=== PATIENT | male | born 1955 | race Caucasian/White ===

== ENCOUNTER 2017-06-15 11:12 | Day surgery (SDC) | payer OTHER ==
[~2017-06-15] VITALS: Ht 180.3 cm; Wt 80.0 kg
[2017-06-15] VITALS (14 sets, daily range): BP systolic 136–169; BP diastolic 64–82; PULSE 59–72; RESP 14–16; O2SAT 94–100
[~2017-06-15 11:12] MED LIST: ASPI-351 PO; CLOP75TA14 PO; IBUP-1149 PO; ISOS30TA PO; NITR0.4T SL; PRAS10TA5 PO; RANI-351 PO; SIMV5TAB PO; TOP100 PO; ZES5 PO
--- NOTE | 2017-06-15 11:15 | ED.REPORT ---
HPI-Chest Pain 40 and Over Date of Service Jun 15, 2017 ED Provider: Dr. Saleem Pt is a 62 y/o male w/ a hx of CAD s/p stenting, HTN, HLD, presenting to the ED from a cardiac stress test due to chest pain and ST changes. The patient has been experiencing intermittent left upper chest discomfort with radiation down the left arm. This morning he woke up and his symptoms occurred while at rest. He was scheduled for a stress echocardiogram this morning and during the stress test his chest discomfort worsened and he developed dynamic ST depressions with mild exertion with his HR in the 80s. The stress test was terminated and he was transferred here accompanied by Dr. Elliott to the ED with plan to make him NPO, heparinize, and laboratory development technician later today. He is still experiencing mild chest discomfort at time of interview. During exertion, he experiences dyspnea. He hasn't smoked since 2008. Dr. Reyes placed an RCA stent in 2012 and an LAD stent was [place] [address] King. Nursing Notes Stated Complaint: FAILED STRESS TEST Nursing Notes Reviewed: Yes Allergies: Coded Allergies: codeine (Verified Allergy, Intermediate, GI, 01/10/13) hydrocodone (Verified Allergy, Unknown, Dizziness, 06/15/17) collapsed in shower Scheduled Amlodipine (Amlodipine) 2.5 Mg Tablet 2.5 MG PO DAILY Aspirin (Aspirin) 81 Mg Tablet 81 MG PO DAILY Escitalopram Oxalate (Escitalopram Oxalate) 10 Mg Tablet 10 MG PO DAILY Lisinopril (Lisinopril) 10 Mg Tablet 10 MG PO DAILY Metoprolol Succinate ER (Metoprolol Succinate ER) 50 Mg Tab.er.24h 50 MG PO DAILY Prasugrel HCl (Effient) 10 Mg Tablet 10 MG PO DAILY Simvastatin (Simvastatin) 20 Mg Tablet 20 MG PO HS Scheduled PRN Ibuprofen (Ibuprofen) 400 Mg Tablet 400 MG PO QID PRN PRN For Pain Miscellaneous Medications Nitroglycerin (Nitroglycerin) 0.3 Mg Tab.subl 0.3 MG SL Ranitidine HCl (Heartburn Relief) 75 Mg Tablet 75 MG PO Rosuvastatin Calcium (Rosuvastatin Calcium) 20 Mg Tablet 20 MG PO General Time Seen by MD: 11:14 Chief Complaint Chest pressure Hx Obtained From: Patient Arrived By: Walk-in (from laboratory development technician) Sudden in Onset?: Yes Onset Occurred: Just prior to arrival Symptom Duration: Since onset Location: : Chest left Quality: Aching, Pressure Radiation: : Arm left Severity: Current: Mild Severity: Maximum: Moderate Recent Healthcare: Previous diagnosis Similar Sx Previous: Yes Past Medical History Past Medical History CAD s/p stenting to LAD and RCA Hypertension Hyperlipidemia Denies diabetes Past Surgical History Dr. Reyes placed an RCA stent in 2012 and an LAD stent was [place] [address] King. Smoking History Former Smoker Social History Alcohol Use: Denies alcohol use Drug Use: Denies drug use Ambulatory Status Independent Review of Systems Constitutional: Denies: Chills, Fever Respiratory: Denies: Non-productive cough Cardiovascular: Reports: Chest pain, Dyspnea on exertion GI: Denies: Abdominal pain, Nausea, Vomiting Complete sys rev & neg: except as marked. Physical Exam Initial Vital Signs Vital Signs (First) Date Time Temp Pulse Resp B/P Pulse Ox O2 Delivery O2 Flow Rate FiO2 06/15/17 11:17 36.3 59 14 169/69 100 Room Air Initial VS: Reviewed Head / Eyes: Atraumatic, Normocephalic ENT: Mucous membranes moist, Conjunctiva normal, No scleral icterus Neck: Supple, Full range of motion Extremities: Vascular intact, Neuro intact, No swelling Skin: Warm, Dry, No cyanosis Neurologic: Alert, Oriented, Nonfocal Psychiatric: Mood/affect normal, Behavior normal, Normal thought content General/Constitutional: Awake, Alert, No acute distress, Well appearing, Cooperative, Not toxic appearing Respiratory / Chest: Breath sounds NL, Breath sounds = bilat, No respiratory distress, No rales, No rhonchi, No wheezing, No stridor, No chest tenderness Cardiovascular: Heart rate NL, Regular rhythm, Heart sounds NL, No murmurs Abdomen: Soft, Non-tender, No guarding, No rebound, No distention Interpretation & Diagnostics Lab Results Interpretation Result Diagram: 06/15/17 1205 06/15/17 1205 Test 06/15/17 12:05 White Blood Count 8.0th/mm3 (3.8-10.1) Red Blood Count 3.93mil/mm3 (4.40-5.80) Hemoglobin 12.1g/dL (13.8-17.2) Hematocrit 36.2% (41.0-50.0) Mean Corpuscular Volume 92.1fL (81-100) Mean Corpuscular Hemoglobin 30.8pg (27.0-35.0) Mean Corpuscular Hemoglobin Concent 33.4% (32.0-37.0) Red Cell Distribution Width 12.7% (12.3-15.4) Platelet Count 255bil/L (150-400) Neutrophils (%) (Auto) 59.2% (40-74) Lymphocytes (%) (Auto) 30.2% (14-46) Monocytes (%) (Auto) 8.6% (4-12) Eosinophils (%) (Auto) 1.3% (0-5) Basophils (%) (Auto) 0.6% (0-3) Prothrombin Time 10.7sec (8.1-12.5) Prothromb Time International Ratio 1.00ratio Activated Partial Thromboplast Time 28.2sec (22.8-33.0) Sodium Level 140mEq/L (134-144) Potassium Level 4.3mEq/L (3.5-5.2) Chloride Level 102mEq/L (97-108) Carbon Dioxide Level 24mmol/L (18-29) Blood Urea Nitrogen 20mg/dL (8-27) Creatinine 1.08mg/dL (0.76-1.27) Estimat Glomerular Filtration Rate 74mL/min (>59) Glucose Level 90mg/dL (60-99) Calcium Level 9.5mg/dL (8.5-10.1) Magnesium Level 2.1mg/dL (1.6-2.6) Total Bilirubin 0.7mg/dL (0.0-1.2) Aspartate Amino Transf (AST/SGOT) 24U/L (0-50) Alanine Aminotransferase (ALT/SGPT) 24U/L (0-44) Alkaline Phosphatase 87U/L (25-160) Troponin T < 0.010ug/L (0.0-0.011) Total Protein 7.4g/dL (6.4-8.4) Albumin 4.5g/dL (3.4-5.0) Thyroid Stimulating Hormone (TSH) 1.680uIU/mL (0.450-4.500) Hold Pro Top Tube Received (Received) ECG Interpretation Time: 11:45 Interpreted by: ED physician Normal ECG Interpretation: Normal ECG w/ rate of... (55), Normal rate, Normal sinus rhythm, No acute ischemic changes, Normal QRS, Normal axis, Normal intervals, Adequate tracing X-Ray Chest Interpretation Chest Xray Interpretation: IMPRESSION: Negative chest. No acute cardiopulmonary process is evident. Dictated by: Chris Martin M.D. on 06/15/2017 at 10:37 Approved by: Chris Martin M.D. on 06/15/2017 at 10:43 View: Portable, 1 view Interpretation / Wet Read by: Interpret - Radiologist Re-Eval/Medical Decision Med Decision/Clinical Course 62-year-old male history of cardiac disease and stents in the LAD in 2008 and right side of the heart in 2012 sent in for admission by oil field equipment mechanic supervisor after ST depressions during stress test today. Cardiology recommended heparinization and will take to laboratory development technician later today. Admitted to hospital. Source of Hx: Old records, Private physician Time of Eval: 11:26 Re-Evaluation/Progress Note: Pt rechecked. Informed pt of need for admission. Pt understands and agrees with plan for admission. All questions addressed. CODE STATUS: FULL CODE Consultation #1: Referral / Consult Name: Christine Elliott MD Call Returned at: 11:14 Delphi Developer: Will see patient, Agrees with eval, Agrees with plan Note: Discussed case before patient's arrival. Consultation #2: Referral / Consult Name: Lul De DO Consulted With: Hospitalist Call Returned at: 12:44 Delphi Developer: Accepts admit Note: Discussed case with Lexi. Counseled Regarding: Diagnosis, Lab results, Need for admission Discharge & Departure Primary Impression: Unstable angina Disposition: ADMITTED TO HOSPITAL Discharge Condition All VS Reviewed: Yes Condition: Stable Referrals: Neris Raymond (PCP) Crit Care Except Billable Proc Time Spent: 30-74 minutes Services Performed: Patient management by me, Time spent at bedside, Reviewing test results, Reviewing imaging, Discussing patient care, Documentation in record Critical Care Notes: 30 minutes Scribe Attestation Portions of this note were transcribed by Meet Arreaga. I, Dr. Saleem personally performed the history, physical exam and medical decision-making; I reviewed and confirmed the accuracy of the information in the transcribed note. copies to: Neris Raymond Ben M MD Jun 15, 2017 11:15 MEET ARREAGA Jun 15, 2017 11:22
[2017-06-15] MEDS ORDERED: 0.9% Sodium Chloride 1,000 ML IV ONE (11:17)
--- NOTE | 2017-06-15 11:45 | DRSVH ---
PROCEDURE: X-RAY CHEST ONE VIEW, PORTABLE ([id number]) INDICATIONS: chest pain TECHNIQUE: One view of the chest was acquired. COMPARISON: None. FINDINGS: Surgical changes and devices: None. Lungs and pleura: No pleural effusions or pneumothorax. Lungs are clear. Mediastinum: Mediastinal contours appear normal. Heart size is normal. Bones and chest wall: No suspicious bony lesions. Overlying soft tissues appear unremarkable. IMPRESSION: Negative chest. No acute cardiopulmonary process is evident. Dictated by: Chris Martin M.D. on 06/15/2017 at 10:37 Approved by: Chris Martin M.D. on 06/15/2017 at 10:43
[2017-06-15] MEDS ORDERED: Heparin 25K Unit/500mL 0.45 NS 25,000 UNIT in IV Premix 1 EACH IV ONE (12:20)
[2017-06-15] MEDS ORDERED: Heparin 5,000 Unit/mL Inj IVPUSH ONE (12:20)
[2017-06-15 12:29] LABS: BASOPHILS % (AUTO) 0.6 % (0-3); EOSINOPHILS % (AUTO) 1.3 % (0-5); MONOCYTES % (AUTO) 8.6 % (4-12); Mean Corpuscular Hemoglobin 30.8 pg (27.0-35.0); Mean Corpuscular Volume 92.1 fL (81-100); NEUTROPHILS % (AUTO) 59.2 % (40-74); Platelet Count 255 bil/L (150-400)
[2017-06-15] MEDS ORDERED: Ondansetron 2 mg/mL 2 mL Inj IVPUSH PRN (12:45)
[2017-06-15] MEDS ORDERED: Alum-Mag Hydrox-Simeth 30 mL Suspension PO PRN (12:45)
[2017-06-15 13:04] LABS: Magnesium 2.1 mg/dL (1.6-2.6)
[2017-06-15 13:09] LABS: TROPONIN T < 0.010 ug/L (0.0-0.011)
[2017-06-15] MEDS ORDERED: Heparin 10,000 Unit/1,000 mL NS Premix IV ONE (13:21)
[2017-06-15] MEDS ORDERED: Heparin 1,000 Units/500 mL NS Premix IV ONE (13:21)
[2017-06-15] MEDS ORDERED: Heparin 1,000 Unit/mL 10 mL Inj ONE (13:24)
[2017-06-15] MEDS ORDERED: fentaNYL-PF 50 mCg/mL 2 mL Inj ONE (13:43)
[2017-06-15] MEDS ORDERED: LISI10TA PO (13:52)
[2017-06-15] MEDS ORDERED: SIMV20TA4 PO (13:52)
[2017-06-15] MEDS ORDERED: RANI75TA72 PO (13:52)
[2017-06-15] MEDS ORDERED: IBUP400T22 PO (13:52)
[2017-06-15] MEDS ORDERED: ASPI-973 PO (13:52)
[2017-06-15] MEDS ORDERED: METO-272 PO (13:52)
[2017-06-15] MEDS ORDERED: NITR0.3T6 SL (13:52)
[2017-06-15] MEDS ORDERED: PRAS10TA5 PO (13:55)
[2017-06-15] MEDS ORDERED: ESCI10TA52 PO (14:54)
[2017-06-15] MEDS ORDERED: ROSU20TA27 PO (14:54)
[2017-06-15] MEDS ORDERED: AMLO2.5T PO (14:54)
[2017-06-15] MEDS ORDERED: Atropine 1 mg/10 mL (Code) Syringe IVPUSH PRN (15:05)
[2017-06-15] MEDS ORDERED: Senna-Docusate 8.6-50 mg Tablet PO PRN (15:05)
[2017-06-15] MEDS ORDERED: Polyethylene Glycol (PEG) 17 Gm Powder PO PRN (15:05)
--- NOTE | 2017-06-15 16:06 | CS94 ---
[address] [address] DIAGNOSTIC CARDIAC CATHETERIZATION PATIENT: ALYSON DAVIS : 1955 MR#: [id number] ADMIT: 06/15/2017 JOB ID: [id number] SERVICE DATE: 06/15/2017 CHIEF COMPLAINT: Chest pain. HISTORY OF PRESENT ILLNESS: The patient is a delightful 62-year-old with chest pain both at rest and during physical activity. He presents to the emergency department after abnormal stress echo this morning and Cardiology is consulted to assist with further management. PROCEDURES PERFORMED: 1. Left heart catheterization--selective coronary angiogram. 2. Right common femoral artery vascular access under ultrasound guidance. 3. Hemostasis obtained via Perclose closure device. 4. Hemodynamic recording left ventricular end-diastolic pressure. Ventriculogram deferred by intention to conserve contrast. FINDINGS: Following informed consent, the patient was prepped and draped in the usual sterile fashion. A 6-Guatemalan sheath was placed in the right common femoral artery. Sheath placement was confirmed via femoral angiogram. JL-4 and JR-4 catheters were used to engage left main and right coronary artery ostia respectively. Hand injection craniocaudal angulation was used to obtain selective coronary angiograms. All exchanges were performed over a wire. Pigtail was advanced in the left ventricle under continuous hemodynamic monitoring. Left ventricular end-diastolic pressure was recorded. The pigtail was withdrawn from the left ventricle into the aorta. No aortic stenosis was visualized. Perclose closure device was used to obtain hemostasis. COMPLICATIONS: None. CONTRAST USED: 70 cc. FLUOROSCOPY TIME: 3.3 minutes. FINDINGS: Right common femoral artery gives rise to SFA and profunda. The sheath entered the right common femoral artery at the lower third of the femoral head. There is no evidence of contrast extravasation or dissection. Left ventricular end-diastolic pressure recording: Left ventricular end-diastolic pressure is 28 mmHg. Blood pressure 155/15. There is no evidence of aortic stenosis based on pullback. Coronary angiogram: Left main is a normal caliber vessel, gives rise to LAD and the circumflex. Excellent blow back. No dampening on engagement. No obstructive lesion seen. LAD is a wrap-around vessel. There are two previously deployed overlapping stents in the midportion of the LAD. There is moderate 50% stenosis proximal to the stent. It is completely unchanged compared to prior angiogram performed in 2013. Circumflex is a nondominant vessel. It gives rise to a small OM-1, large OM-2, and large OM-3 and no obstructive lesions are seen. Right coronary artery is a dominant vessel. It gives rise to PDA and posterior lateral branch. There is a previously deployed Xience drug-eluting stent in the proximal portion of the vessel. There is moderate lesion just proximal to the stent and moderate lesion at the distal shoulder of the stent. It is about 40%-50%. IMPRESSION: 1. Known hemodynamically significant mid LAD disease in the proximal shoulder of previously deployed stent. It is 40%-50% and unchanged from prior study performed in 2013. 2. Newly described 40%-50% stenosis in the proximal shoulder of the right coronary artery stent and 40%-50% stenosis in the distal shoulder of previously deployed right coronary artery stent. Does not appear to be hemodynamically significant. Was reviewed with Dr. Sandhu. PLAN: We will continue with therapeutic lifestyle change program via diet and exercise. Increase amlodipine from 2.5 mg daily to 5 mg daily and low threshold to escalate beta kin should exertional chest discomfort continue. Thank you very much for the opportunity to evaluate this patient.
[2017-06-15] MEDS: Heparin 5,000 Unit/mL Inj SUBQ SCH ×2 (16:30→23:56)
[2017-06-15] MEDS: Sodium Chloride LOK Flush 10 mL Syringe IVFLUSH SCH ×2 (16:30→23:56)
--- NOTE | 2017-06-15 17:06 | NUR ---
arrival to room 3031 patient transferred from [facility] to room 3031 at 1700hrs today. right groin checked, no oozing, no hematoma. post angiogram care instructions reviewed with patient and family. can be off bedrest at 1700hrs. NS at 100ml/hr x4hrs post procedure. 4hrs completed at 1900hrs. patient denies CP/SOB dizziness, N/V. distal pedal pulse present. continue to monitor.
--- NOTE | 2017-06-15 19:15 | PCM.HPMED ---
Subjective Date of Service Jun 15, 2017 Primary Provider: Admitting Physician: Primary Care Physician: Neris Raymond Attending Physician: Lul De DO Admit Status: From the Emergency Department Chief Complaint: chest pain with failed stress test History of Present Illness: Craig Mcfarland is a 62-year-old male with past medical history coronary artery disease with percutaneous intervention to his LADx2 and RCA who presents due to a failed stress test which was recommended by his PCC Abida Raymond for chest pain that has become more frequent since March. At the patient's stress test he reportedly had transient ST depression concerning for possible ischemia with associated chest discomfort. The patient had his stress test terminated and he was transferred to the [facility] ED accompanied by director trust Dr. Elliott for the patient was made NPO and placed on a heparin drip and eventually transferred to the cardiac manufacturing lab technician. The patient states that the pain occurs most commonly in the mornings and is a 5/10 sharp pain in his chest that radiates down his left back and down his left arm. The patient also has associated shortness of breath with this chest pain which lasts nearly 15 minutes typically. Rest seems to help alleviate the pain. These episodes of chest pain are similar to chest pain occurring in 2008 which resulted in PCI 2x LAD stents. The patient has a history of tobacco use but quit in 2008. Dr. Reyes placed an RCA stent in 2012 and an LAD stent was [place] [address] King. The patient's regular director trust is Dr. Bray. Review of Systems: A comprehensive review of systems was obtained and all are negative except for what is included in the history of present illness Allergies Coded Allergies: codeine (Verified Allergy, Intermediate, GI, 01/10/13) hydrocodone (Verified Allergy, Unknown, Dizziness, 06/15/17) collapsed in shower Home Medications Amlodipine 2.5 MG PO DAILY Aspirin 81 MG PO DAILY Escitalopram Oxalate 10 MG PO DAILY Lisinopril 10 MG PO DAILY Metoprolol Succinate ER 50 MG PO DAILY Prasugrel HCl 10 MG PO DAILY Simvastatin 20 MG PO HS Ibuprofen 400 Mg Tablet PRN For Pain Nitroglycerin 0.3 MG SL Ranitidine HCl 75 MG PO Rosuvastatin Calcium Tablet 20 MG PO PMH Coronary artery disease with history of percutaneous intervention Hypertension Hyperlipidemia History of tobacco use Surgical History LAD stent 2x in 12/2008 RCA stent 1x 12/2012 Family History Father: Passed around age 70 due to unknown heart condition. Emphysema Mother: Passed at age 59 due to Cancer of Brain Brother: Fatal [place] at age 64 Brother: Alive with unknown Heart Stents and Leg Stents Social History Hx Alcohol Use: No Hx Substance Use: No Hx Tobacco Use: No Smoking Status: Former Smoker Years of Smokin Living Arrangement: with Family Exam Vital Signs Vital Sign - Last Date Time Temp Pulse Resp B/P Pulse Ox O2 Delivery O2 Flow Rate FiO2 06/15/17 17:00 68 06/15/17 16:57 37.1 16 154/82 95 Room Air Exam General: Middle-age man appearing in no acute distress alert and cooperative Eyes: Pupils equal round and reactive to light, extraocular motion intact, anicteric sclera, noninjected conjunctiva HENT: Normocephalic atraumatic, moist mucous membranes without central cyanosis , oropharynx clear without purulent exudate or cobblestoning mucosa Neck: Supple, trachea midline, without thyromegaly or JVD Cardiovascular: Regular rate and regular rhythm, S1-S2 present, no S3-S4, without murmurs rubs or gallops noted Lungs: Clear to auscultation bilaterally without wheezing rales or rhonchi Abdomen: Soft, nontender, nondistended, tympanic to percussion, normal active bowel sounds, without organomegaly Extremities: No cyanosis clubbing or edema noted, pulses intact bilaterally at dorsalis pedis and radial : No Jonas catheter in place Skin: Warm and dry Neuro: Nonfocal neurologic exam, moves all extremities spontaneously Psych: Normal mood and affect Lab and Diagnostics Result Diagram: 06/15/17 1205 06/15/17 1205 X-Rays, CTs and MRIs X-RAY CHEST ONE VIEW, PORTABLE IMPRESSION: Negative chest. No acute cardiopulmonary process is evident. Approved by: Chris Martin M.D. on 06/15/2017 at 10:43 Cardiac Echo Impressions Echocardiogram Report Interpretation Summary The estimated MILLER is +40%. This was a normal stress echocardiogram. Exercise stress echocardiogram is negative for inducible ischemia. The patient demonstrated severely reduced exercise capacity without angina or significant ECG evidence of ischemia. The sensitivitiy and specificity of this test was reduced because of an inadequate heart rate response. Reading Physician:02:31 PM Assessment & Plan Craig Mcfarland is a 62-year-old male with past medical history coronary artery disease with percutaneous intervention to his LADx2 and RCA who presents with chest pain and following a failed stress test with transient ST depression concerning for ischemia. # acute unstable angina - Patient notes recurrent chest pain which appears to be prominent in the morning with some association with exertion - Patient had a failed stress test which resulted in transient ST depression with associated chest pain - Patient seen by cardiology and taken to the cardiac manufacturing lab technician which showed nonobstructive coronary artery disease - Initial troponin drawn in the ED negative this will not be repeated after cardiac catheterization is likely manipulation of the heart will cause increased troponins - will not repeat echo post cath given stress echo testing which is copied above - Continue baby aspirin daily - Continue home Prasugrel 10 MG daily - Continue home statin therapy with rosuvastatin 20mg - Lipid panel ordered - Morphine IV, sublingual nitroglycerin, and when necessary EKGs for recurrent chest pain # chronic hypertension - Increase Amlodipine dosing from 2.5 mg to 5 mg every night - Lisinopril 10 mg daily every morning - Continue home metoprolol succinate 50 mg # anxiety - continue home escitalopram GI prophylaxis: Famotidine DVT prophylaxis: Heparin drip CODE STATUS full Patient is admitted for observation status given presenting symptoms, likely diagnosis, possible complications, and required treatments expected length of stay less than to midnights. Pain Evaluation: Adequate Pain Control GI Prophylaxis: H2 kin VTE Prophylaxis Indicated: Meets Criteria for Anticoag Therapy VTE Prophylaxis: Sub-Q Heparin (Unfractionated) Resuscitation Status: CPR: Attempt Resuscitation Time spent 45 minutes Attending Statement I have seen and evaluated patient at bedside in addition to directly supervising care provided by resident physician. I agree with above documentation. Pt medically stable, observe overnight, likely discharge in AM. Mk Day DO Jun 15, 2017 19:15 Lul De DO Jun 15, 2017 22:17
[2017-06-16 00:01] VITALS: BP 110/56; PULSE 65; RESP 16; O2SAT 98
--- NOTE | 2017-06-16 02:35 | NUR ---
NOC shift Patient's vitals have been stable. Reports 1/10 left-sided chest pain that feels muscular, declined medications. Instructed patient to alert staff if pain changes, increases. Telemetry has been sinus reid, sinus rhythm 50-60's. Right groin site remained CDI with no bleeding or swelling noted. Patient reports pain in this area at 3/10, mostly after ambulation. Declined offered interventions. Patient remained alert and oriented, easily wakes to voice, able to make needs known. Intentional rounding in place.
[2017-06-16 05:04] VITALS: BP 134/74; PULSE 57; RESP 16; O2SAT 97
[2017-06-16 06:41] VITALS: PULSE 68
[2017-06-16 06:55] LABS: Mean Corpuscular Volume 90.9 fL (81-100)
[2017-06-16] MEDS: Sodium Chloride LOK Flush 10 mL Syringe IVFLUSH SCH (07:53)
[2017-06-16] MEDS: Heparin 5,000 Unit/mL Inj SUBQ SCH (07:53)
[2017-06-16] MEDS ORDERED: MeTOProlol XL 50 mg ER24 Tablet PO SCH (08:30)
[2017-06-16 09:08] VITALS: PULSE 72
[2017-06-16 09:13] VITALS: BP 118/65; PULSE 65; RESP 16; O2SAT 96
[2017-06-16] MEDS ORDERED: AMLO5TAB2 PO (09:53)
--- NOTE | 2017-06-16 10:51 | PCM.DIMED ---
Discharge Instructions Date of Service Jun 16, 2017 Dates of Hospitalization Jun 15, 2017 Discharge Diagnosis Discharge Diagnosis acute dx acute unstable angina with non-obstructive CAD chronic dx hypertension anxiety Medication Instructions Additional med instructions Please note that your amlodipine was increased from 2.5mg to 5mg daily for better blood pressure control Diet Discharge Diet: Low fat, Low Sodium, Heart Healthy Activity Discharge Activity: No restrictions Call your provider Call your provider for: Shortness of breath, Chest pain Patient Instructions Patient Instructions You were hospitalized with chest pain. You underwent stress test and cardiac catheterization, which didn't show any active evidence of heart attack. Please follow up with as scheduled. Please follow up with your primary doctor in 1-2weeks for follow up Follow-up Provider: Neris Raymond Follow-up with PCP in: 1 week Natalia Heath MD Jun 16, 2017 10:51
--- NOTE | 2017-06-16 12:24 | NUR ---
DISCHARGE Patient discharged home at 1200, off floor in wheelchair accompanied by RN and family. Vitals stable, denies paid and in no apparent distress. Two IVs discontinued intact, all belongings returned. All instructions for diet, activity, medications, follow-up and new prescriptions reviewed with patient who reports understanding. Clarified with Dr Heath that patient was not to take prasugrel 10mg PO at discharge. MD states it is not on home med rec and patient does not need a prescription. Patient given booklet about vascular access closure post procedure. Patient reports understanding all instructions.
--- NOTE | 2017-06-16 14:41 | PCM.DC.MED ---
Discharge Summary Date of Service Jun 16, 2017 Dates of Hospitalization Date of Hospital Admission Date of Discharge: Jun 16, 2017 Providers: Admitting Physician: Primary Care Physician: Neris Raymond Attending Physician: Lul De DO Diagnosis at Time of Discharge Diagnosis at Time of Discharge acute dx acute unstable angina with non-obstructive CAD chronic dx hypertension anxiety Consultations Cardiology Procedures XRay, CTs & MRIs X-RAY CHEST ONE VIEW, PORTABLE IMPRESSION: Negative chest. No acute cardiopulmonary process is evident. Approved by: Chris Martin M.D. on 06/15/2017 at 10:43 Cardiac Echo Impression Echocardiogram Report Interpretation Summary The estimated MILLER is +40%. This was a normal stress echocardiogram. Exercise stress echocardiogram is negative for inducible ischemia. The patient demonstrated severely reduced exercise capacity without angina or significant ECG evidence of ischemia. The sensitivitiy and specificity of this test was reduced because of an inadequate heart rate response. Reading Physician:02:31 PM Brief History HPI obtained by on 06/15 Craig Mcfarland is a 62-year-old male with past medical history coronary artery disease with percutaneous intervention to his LADx2 and RCA who presents due to a failed stress test which was recommended by his PCC Abida Raymond for chest pain that has become more frequent since March. At the patient's stress test he reportedly had transient ST depression concerning for possible ischemia with associated chest discomfort. The patient had his stress test terminated and he was transferred to the [facility] ED accompanied by worship director Dr. Elliott for the patient was made NPO and placed on a heparin drip and eventually transferred to the cardiac geoscience laboratory technician. The patient states that the pain occurs most commonly in the mornings and is a 5/10 sharp pain in his chest that radiates down his left back and down his left arm. The patient also has associated shortness of breath with this chest pain which lasts nearly 15 minutes typically. Rest seems to help alleviate the pain. These episodes of chest pain are similar to chest pain occurring in 2008 which resulted in PCI 2x LAD stents. The patient has a history of tobacco use but quit in 2008. Dr. Reyes placed an RCA stent in 2012 and an LAD stent was [place] [address] King. The patient's regular worship director is Dr. Bray. Hospital Course Craig Mcfarland is a 62-year-old male with past medical history coronary artery disease with percutaneous intervention to his LADx2 and RCA who presents with chest pain and following a failed stress test with transient ST depression concerning for ischemia Brief hospital course Patient was admitted , underwent cardiac cath, which showed non-obstructive dz, 40-50% on mil LAD, which was unchanged from prior cath 2012, but new lesions, 40 %-50% stenosis in the proximal shoulder of the right coronary artery stent and 40%-50% stenosis in the distal shoulder of previously deployed right coronary artery stent. Does not appear to be hemodynamically significant. No intervention required. Patient was treated with home aspirin, BB, amlodipine was increased to 2.5mg to 5mg, observed after cath , remained asymptomatic, deemed safe for d/c # acute unstable angina - Patient notes recurrent chest pain which appears to be prominent in the morning with some association with exertion - Patient had a failed stress test which resulted in transient ST depression with associated chest pain - Patient seen by cardiology and taken to the cardiac geoscience laboratory technician which showed nonobstructive coronary artery disease - Initial troponin drawn in the ED negative this will not be repeated after cardiac catheterization is likely manipulation of the heart will cause increased troponins - will not repeat echo post cath given stress echo testing which is copied above - Continue baby aspirin daily - Continue home Prasugrel 10 MG daily - Continue home statin therapy with rosuvastatin 20mg - Lipid panel ordered - Morphine IV, sublingual nitroglycerin, and when necessary EKGs for recurrent chest pain # chronic hypertension - Increase Amlodipine dosing from 2.5 mg to 5 mg every night - Lisinopril 10 mg daily every morning - Continue home metoprolol succinate 50 mg # anxiety - continue home escitalopram GI prophylaxis: Famotidine DVT prophylaxis: Heparin drip CODE STATUS full Patient is admitted for observation status given presenting symptoms, likely diagnosis, possible complications, and required treatments expected length of stay less than to midnights. Exam Vital Signs (Last) Date Time Temp Pulse Resp B/P Pulse Ox O2 Delivery O2 Flow Rate FiO2 06/16/17 09:13 36.9 65 16 118/65 96 Room Air Exam pt was examined on the day of d/c Test 06/15/17 12:05 06/15/17 18:30 06/16/17 06:35 Neutrophils (%) (Auto) 59.2% (40-74) Lymphocytes (%) (Auto) 30.2% (14-46) Monocytes (%) (Auto) 8.6% (4-12) Eosinophils (%) (Auto) 1.3% (0-5) Basophils (%) (Auto) 0.6% (0-3) Prothrombin Time 10.7sec (8.1-12.5) Prothromb Time International Ratio 1.00ratio Hemoglobin A1c 5.6% (4.8-5.6) Magnesium Level 2.1mg/dL (1.6-2.6) Thyroid Stimulating Hormone (TSH) 1.680uIU/mL (0.450-4.500) Hold Pro Top Tube Received (Received) Activated Partial Thromboplast Time 27.3sec (22.8-33.0) White Blood Count 6.6th/mm3 (3.8-10.1) Red Blood Count 3.94mil/mm3 (4.40-5.80) Hemoglobin 12.2g/dL (13.8-17.2) Hematocrit 35.8% (41.0-50.0) Mean Corpuscular Volume 90.9fL (81-100) Mean Corpuscular Hemoglobin 31.0pg (27.0-35.0) Mean Corpuscular Hemoglobin Concent 34.1% (32.0-37.0) Red Cell Distribution Width 12.6% (12.3-15.4) Platelet Count 241bil/L (150-400) Sodium Level 141mEq/L (134-144) Potassium Level 4.3mEq/L (3.5-5.2) Chloride Level 103mEq/L (97-108) Carbon Dioxide Level 23mmol/L (18-29) Blood Urea Nitrogen 14mg/dL (8-27) Creatinine 0.99mg/dL (0.76-1.27) Estimat Glomerular Filtration Rate 82mL/min (>59) Glucose Level 117mg/dL (60-99) Calcium Level 9.6mg/dL (8.5-10.1) Total Bilirubin 0.9mg/dL (0.0-1.2) Aspartate Amino Transf (AST/SGOT) 19U/L (0-50) Alanine Aminotransferase (ALT/SGPT) 19U/L (0-44) Alkaline Phosphatase 87U/L (25-160) Troponin T 0.010ug/L (0.0-0.011) Total Protein 6.9g/dL (6.4-8.4) Albumin 4.3g/dL (3.4-5.0) Triglycerides Level 111mg/dL (0-149) Cholesterol Level 104mg/dL (100-199) LDL Cholesterol, Calculated 34.800mg/dL (0-99) VLDL Cholesterol 22.200mg/dL HDL Cholesterol 47mg/dL (>39) Cholesterol/HDL Ratio 2.21 (0.0-4.4) Discharge Medications Discharge Medications Amlodipine (Amlodipine) 5 Mg Tablet 5 MG PO HS Prescribed by: NATALIA MIMS MD Aspirin (Aspirin) 81 Mg Tablet 81 MG PO DAILY (Reported) Escitalopram Oxalate (Escitalopram Oxalate) 10 Mg Tablet 10 MG PO DAILY ( Reported) Lisinopril (Lisinopril) 10 Mg Tablet 10 MG PO DAILY (Reported) Metoprolol Succinate ER (Metoprolol Succinate ER) 50 Mg Tab.er.24h 50 MG PO DAILY (Reported) As needed Ibuprofen (Ibuprofen) 400 Mg Tablet 400 MG PO QID PRN PRN For Pain (Reported) Miscellaneous Medications Nitroglycerin (Nitroglycerin) 0.3 Mg Tab.subl 0.3 MG SL (Reported) Ranitidine HCl (Heartburn Relief) 75 Mg Tablet 75 MG PO (Reported) Rosuvastatin Calcium (Rosuvastatin Calcium) 20 Mg Tablet 20 MG PO (Reported) Additional med instructions Please note that your amlodipine was increased from 2.5mg to 5mg daily for better blood pressure control Followup Plan Disposition: home Discharge Diet: Low fat, Low Sodium, Heart Healthy Discharge Activity: No restrictions Patient Instructions You were hospitalized with chest pain. You underwent stress test and cardiac catheterization, which didn't show any active evidence of heart attack. Please follow up with as scheduled. Please follow up with your primary doctor in 1-2weeks for follow up Follow-up Provider: Neris Raymond PAC Follow-up with PCP in: 1 week Time spent 65min Natalia Mims MD Jun 16, 2017 14:41
== END 2017-06-16 12:00 | disposition home or self-care (01) ==
LOC: SED 11:12 → SPI 12:55 → MPC 16:46 → SPI 06-16 12:00
PROVIDERS: ATTEND Family Medicine
DX: I25.110 Atherosclerotic heart disease of native coronary artery with unstable angina pectoris (principal); Z95.5 Presence of coronary angioplasty implant and graft; I10 Essential (primary) hypertension; E78.5 Hyperlipidemia, unspecified; Z87.891 Personal history of nicotine dependence; Z79.82 Long term (current) use of aspirin; Z79.02 Long term (current) use of antithrombotics/antiplatelets; F41.9 Anxiety disorder, unspecified
CPT/HCPCS: 36415; 71010; 80053; 80061; 83036; 83735; 84443; 84484; 85025; 85027; 85610; 85730; 93005; 93458; 96361; 96372; 96374; 99152; 99153; 99291; C1760; C1769; J1644; J2250; J3010; J7030; Q9967